=== PATIENT | female | born 1955 | race Caucasian/White ===

== ENCOUNTER 2018-07-16 10:56 | Emergency (ER) | payer OTHER ==
[~2018-07-16] VITALS: Ht 162.6 cm; Wt 78.9 kg
[~2018-07-16 10:56] MED LIST: ALEVE220 MG PO; ASPIR 8181 MG PO; CENTRUM SILVER1 EAC2 PO; CYCLOBENZAPRINE10 MG PO; EEMT HS 0.625-1 EACH PO; ESTROGEL50 GM TD; FISH OIL 1,0001 EAC9 PO; MAG GLYCINATE100 MG PO; MICARDIS 20MG T20 M1 PO; MIRALAX17 GM PO; NEURONTIN 300300 M1 PO; NORCO 10-325 T1 EACH PO; PROBIOTIC1 EAC1 PO; VALIUM2 MG PO; VITAMIN D1000 UNI1 PO
[2018-07-16] MEDS ORDERED: ATACAND4 MG PO (11:06)
[2018-07-16 12:48] LABS: ABSOLUTE BASOPHILS 0.1 thou/uL (0.0-0.2); ABSOLUTE LYMPHOCYTES 1.9 thou/uL (0.8-5.3); ABSOLUTE MONOCYTES 0.4 thou/uL (0.0-1.2); ABSOLUTE NEUTROPHILS 8.5 thou/uL (1.6-8.1); EOSINOPHILS 0.1 %; HEMATOCRIT 41.1 % (37.0-47.0); HEMOGLOBIN 13.7 gm/dL (12.0-15.0); LYMPHOCYTES 17.1 %; MCH 30.4 pg (26.0-34.0); MCHC 33.5 g/dL (28.0-37.0); MCV 90.8 fL (80.0-100.0); NUCLEATED RBCS 0 /100WBC; PLATELET COUNT* 341 thou/uL (150-400); POLYS 77.8 %; RBC 4.52 mil/uL (4.20-5.00); RDW-CV 13.3 % (10.5-14.5); WBC 10.9 thou/uL (4.0-11.0)
[2018-07-16 13:02] LABS: CALCIUM 9.6 mg/dL (8.5-10.1); CREATININE 0.9 mg/dL (0.6-1.3)
[2018-07-16 13:07] LABS: ALBUMIN 3.9 g/dL (3.4-5.0); POTASSIUM 4.2 mmol/L (3.5-5.1); TOTAL BILIRUBIN 0.5 mg/dL (<0.1-1.0); TOTAL PROTEIN 8.7 g/dL (6.4-8.2)
[2018-07-16] MEDS ORDERED: MEDI-MECLIZINE25 MG PO (13:17)
[2018-07-16] MEDS ORDERED: REGLAN 10 MG TA10 MG PO (13:17)
[2018-07-16 13:36] VITALS: BP 139/75
--- NOTE | 2018-07-17 10:07 | EKG ---
[place] [address] ELECTROCARDIOGRAM REPORT Name: HIGINIO CASTILLO Room: [facility]#: [id number] Admission: 07/16/18 Attend Phys: Discharge: 07/16/18 Date of : 53 Report #: [id number] THIS REPORT FOR: //name// [facility] ED Test Date: 2018-07-16 Test Time: 11:20:44 Pat Name: HIGINIO CASTILLO Department: Room: Gender: F Traffic Worker: MAGDALENA : 1955 Requested By: Maksim Leung Order Number: [id number] MD: Dylan Austin Measurements Intervals [place] Rate: 76 P: 66 MT: 144 QRS: 53 QRSD: 90 T: 36 QT: 390 QTc: 439 Interpretive Statements Sinus rhythm Compared to ECG 11/04/2015 18:38:26 Sinus tachycardia no longer present ST (T wave) deviation no longer present Electronically Signed On 07-17-2018 10:07:47 PIN SETTER by Dylan Austin [email or web address] <ELECTRONICALLY SIGNED> By: Dylan Austin MD, [facility] 07/17/18 [id number] Dylan Austin MD, [facility] /EPI
== END 2018-07-16 13:27 | disposition home or self-care (01) ==
LOC: M.ERS 10:56
PROVIDERS: Nurse Practitioner Family
DX: R42 Dizziness and giddiness (principal); R11.2 Nausea with vomiting, unspecified; I10 Essential (primary) hypertension; M19.90 Unspecified osteoarthritis, unspecified site; Z90.710 Acquired absence of both cervix and uterus